=== PATIENT | male | born 1930 | race Caucasian/White ===

== ENCOUNTER → 2016-05-23 | Outpatient (CLI) | payer MEDICARE, OTHER ==
[2016-05-23 08:19] LABS: HEMATOCRIT 36.8 % (37.9-51.0); HEMOGLOBIN 11.1 g/dL (13.5-17.0); HGB HCT DIFFERENCE -3.5; MEAN CORPUSCULAR HEMOGLOBIN 22.4 pg (27.0-33.4); MEAN CORPUSCULAR HGB CONC 30.2 g/dL (32.0-36.0); MEAN CORPUSCULAR VOLUME 74 fl (80-97); RED BLOOD COUNT 4.94 10^6/uL (4.35-5.55); RED CELL DISTRIBUTION WIDTH 16.5 % (11.5-14.0); WHITE BLOOD COUNT 5.9 10^3/uL (4.0-10.5)
[2016-05-23 08:50] LABS: ANION GAP 14 (5-19); BLOOD UREA NITROGEN 39 mg/dL (7-20); CALCIUM 8.9 mg/dL (8.4-10.2); CARBON DIOXIDE 28 mmol/L (22-30); CHLORIDE 99 mmol/L (98-107); CREATININE RESULT 1.98 mg/dL (0.52-1.25); GLUCOSE 101 mg/dL (75-110); POTASSIUM 4.2 mmol/L (3.6-5.0); SODIUM 140.8 mmol/L (137-145)
== END ==
LOC: OD 07:03
PROVIDERS: ATTEND Internal Medicine Nephrology
DX: I12.9 Hypertensive chronic kidney disease with stage 1 through stage 4 chronic kidney disease, or unspecified chronic kidney disease (principal); N18.3 Chronic kidney disease, stage 3 (moderate); E11.9 Type 2 diabetes mellitus without complications
CPT/HCPCS: 36415; 80048; 85027

== ENCOUNTER → 2016-12-15 | Outpatient (CLI) | payer MEDICARE, OTHER ==
[2016-12-15 08:13] LABS: HEMATOCRIT 34.3 % (37.9-51.0); HEMOGLOBIN 10.9 g/dL (13.5-17.0); HGB HCT DIFFERENCE -1.6; MEAN CORPUSCULAR HEMOGLOBIN 23.3 pg (27.0-33.4); MEAN CORPUSCULAR HGB CONC 31.6 g/dL (32.0-36.0); MEAN CORPUSCULAR VOLUME 74 fl (80-97); RED BLOOD COUNT 4.66 10^6/uL (4.35-5.55); RED CELL DISTRIBUTION WIDTH 19.2 % (11.5-14.0); WHITE BLOOD COUNT 5.3 10^3/uL (4.0-10.5)
[2016-12-15 08:38] LABS: ANION GAP 10 (5-19); BLOOD UREA NITROGEN 41 mg/dL (7-20); CALCIUM 8.6 mg/dL (8.4-10.2); CARBON DIOXIDE 22 mmol/L (22-30); CHLORIDE 109 mmol/L (98-107); CREATININE RESULT 1.86 mg/dL (0.52-1.25); GLUCOSE 93 mg/dL (75-110); MAGNESIUM 2.1 mg/dL (1.6-2.3); POTASSIUM 4.4 mmol/L (3.6-5.0); SODIUM 140.7 mmol/L (137-145)
== END ==
LOC: OD 07:11
PROVIDERS: ATTEND Internal Medicine Nephrology
DX: E11.22 Type 2 diabetes mellitus with diabetic chronic kidney disease (principal); I12.9 Hypertensive chronic kidney disease with stage 1 through stage 4 chronic kidney disease, or unspecified chronic kidney disease; N18.3 Chronic kidney disease, stage 3 (moderate); N39.0 Urinary tract infection, site not specified
CPT/HCPCS: 36415; 80048; 83735; 85027

== ENCOUNTER → 2017-06-11 | Outpatient (CLI) | payer MEDICARE, OTHER ==
[2017-06-11 08:48] LABS: HEMOGLOBIN 12.8 g/dL (13.5-17.0); MEAN CORPUSCULAR HEMOGLOBIN 27.7 pg (27.0-33.4); MEAN CORPUSCULAR HGB CONC 32.9 g/dL (32.0-36.0); MEAN CORPUSCULAR VOLUME 84 fl (80-97); PLATELET COUNT 129 10^3/uL (150-450); RED BLOOD COUNT 4.63 10^6/uL (4.35-5.55); RED CELL DISTRIBUTION WIDTH 14.4 % (11.5-14.0); WHITE BLOOD COUNT 5.7 10^3/uL (4.0-10.5)
[2017-06-11 09:13] LABS: ANION GAP 12 (5-19); BLOOD UREA NITROGEN 38 mg/dL (7-20); CALCIUM 9.2 mg/dL (8.4-10.2); CARBON DIOXIDE 26 mmol/L (22-30); CHLORIDE 106 mmol/L (98-107); GLUCOSE 98 mg/dL (75-110); POTASSIUM 5.1 mmol/L (3.6-5.0); SODIUM 144.3 mmol/L (137-145)
== END ==
LOC: OD 07:13
PROVIDERS: ATTEND Internal Medicine Nephrology
DX: I12.9 Hypertensive chronic kidney disease with stage 1 through stage 4 chronic kidney disease, or unspecified chronic kidney disease (principal); N18.3 Chronic kidney disease, stage 3 (moderate); E11.9 Type 2 diabetes mellitus without complications; D64.9 Anemia, unspecified
CPT/HCPCS: 36415; 80048; 85027

== ENCOUNTER → 2017-12-10 | Outpatient (CLI) | payer MEDICARE, OTHER ==
[2017-12-10 08:19] LABS: HEMATOCRIT 38.9 % (37.9-51.0); HEMOGLOBIN 12.7 g/dL (13.5-17.0); MEAN CORPUSCULAR HGB CONC 32.8 g/dL (32.0-36.0); MEAN CORPUSCULAR VOLUME 82 fl (80-97); PLATELET COUNT 168 10^3/uL (150-450); RED BLOOD COUNT 4.73 10^6/uL (4.35-5.55); RED CELL DISTRIBUTION WIDTH 14.1 % (11.5-14.0); WHITE BLOOD COUNT 6.8 10^3/uL (4.0-10.5)
[2017-12-10 08:56] LABS: ANION GAP 12 (5-19); BLOOD UREA NITROGEN 45 mg/dL (7-20); CARBON DIOXIDE 26 mmol/L (22-30); CHLORIDE 107 mmol/L (98-107); GLUCOSE 105 mg/dL (75-110); PHOSPHORUS 3.9 mg/dL (2.5-4.5); POTASSIUM 5.3 mmol/L (3.6-5.0); SODIUM 144.9 mmol/L (137-145)
== END ==
LOC: OD 07:06
PROVIDERS: ATTEND Physician Assistant Medical
DX: I12.9 Hypertensive chronic kidney disease with stage 1 through stage 4 chronic kidney disease, or unspecified chronic kidney disease (principal); N18.3 Chronic kidney disease, stage 3 (moderate); E11.9 Type 2 diabetes mellitus without complications; E87.5 Hyperkalemia
CPT/HCPCS: 36415; 80048; 83970; 84100; 85027

== ENCOUNTER → 2018-04-07 | Outpatient (CLI) | payer MEDICARE, OTHER ==
[2018-04-07 10:21] LABS: HEMATOCRIT 38.3 % (37.9-51.0); HEMOGLOBIN 12.6 g/dL (13.5-17.0); MEAN CORPUSCULAR HEMOGLOBIN 27.1 pg (27.0-33.4); MEAN CORPUSCULAR VOLUME 82 fl (80-97); PLATELET COUNT 126 10^3/uL (150-450); RED BLOOD COUNT 4.65 10^6/uL (4.35-5.55); RED CELL DISTRIBUTION WIDTH 14.4 % (11.5-14.0); WHITE BLOOD COUNT 6.1 10^3/uL (4.0-10.5)
[2018-04-07 10:44] LABS: ANION GAP 12 (5-19); BLOOD UREA NITROGEN 43 mg/dL (7-20); CARBON DIOXIDE 28 mmol/L (22-30); CHLORIDE 105 mmol/L (98-107); GLUCOSE 99 mg/dL (75-110); PHOSPHORUS 3.1 mg/dL (2.5-4.5); POTASSIUM 4.3 mmol/L (3.6-5.0); SODIUM 144.6 mmol/L (137-145)
== END ==
LOC: OD 09:37
PROVIDERS: ATTEND Physician Assistant Medical
DX: I12.9 Hypertensive chronic kidney disease with stage 1 through stage 4 chronic kidney disease, or unspecified chronic kidney disease (principal); N18.3 Chronic kidney disease, stage 3 (moderate); E87.5 Hyperkalemia; E11.22 Type 2 diabetes mellitus with diabetic chronic kidney disease
CPT/HCPCS: 36415; 80048; 83970; 84100; 85027

== ENCOUNTER → 2018-10-07 | Outpatient (CLI) | payer MEDICARE, OTHER ==
[2018-10-07 08:58] LABS: HEMATOCRIT 36.5 % (37.9-51.0); HEMOGLOBIN 11.8 g/dL (13.5-17.0); MEAN CORPUSCULAR HGB CONC 32.2 g/dL (32.0-36.0); MEAN CORPUSCULAR VOLUME 81 fl (80-97); PLATELET COUNT 181 10^3/uL (150-450); RED BLOOD COUNT 4.53 10^6/uL (4.35-5.55); RED CELL DISTRIBUTION WIDTH 14.8 % (11.5-14.0); WHITE BLOOD COUNT 6.4 10^3/uL (4.0-10.5)
[2018-10-07 09:17] LABS: ANION GAP 8 (5-19); BLOOD UREA NITROGEN 47 mg/dL (7-20); CALCIUM 8.9 mg/dL (8.4-10.2); CARBON DIOXIDE 27 mmol/L (22-30); CHLORIDE 105 mmol/L (98-107); GLUCOSE 94 mg/dL (75-110); PHOSPHORUS 3.9 mg/dL (2.5-4.5); POTASSIUM 4.4 mmol/L (3.6-5.0); SODIUM 140.2 mmol/L (137-145)
== END ==
LOC: OD 08:17
PROVIDERS: ATTEND Physician Assistant Medical
DX: I12.9 Hypertensive chronic kidney disease with stage 1 through stage 4 chronic kidney disease, or unspecified chronic kidney disease (principal); N18.3 Chronic kidney disease, stage 3 (moderate); E11.22 Type 2 diabetes mellitus with diabetic chronic kidney disease; E87.5 Hyperkalemia
CPT/HCPCS: 36415; 80048; 83970; 84100; 85027